=== PATIENT | female | born 1995 | race Caucasian/White ===

== ENCOUNTER 2016-10-11 22:37 | Inpatient (IN) ==
[2016-10-11 23:43] LABS: Bilirubin,Urine Negative (Negative); Blood,Urine Negative (Negative); Clarity,Urine Cloudy (Clear); Color,Urine Yellow (Yellow); Glucose,Urine (UA) Normal (Normal); Ketones,Urine Negative (Negative); Leukocyte Esterase,Urine Negative (Negative); Nitrite,Urine Negative (Negative); Protein,Urine Negative (Neg-Trace); Specific Gravity,Urine 1.026 (1.010-1.025); Urobilinogen,Urine Normal (Normal)
[2016-10-11 23:45] LABS: Bacteria,Urine Few per hpf (None-Few); Hyaline Casts,Urine None Seen per lpf (None-Few); Squamous Epithelial Cell,Urine Many per lpf (None-Few); WBC,Urine 0-3 per hpf (0-3)
[2016-10-11 23:51] LABS: Amphetamine Screen,Urine Negative ng/mL (Cutoff=1000); Barbiturate Screen,Urine Negative ng/mL (Cutoff=200); Benzodiazepines Screen,Urine Negative ng/mL (Cutoff=200); Cannabinoid Screen,Urine Negative ng/mL (Cutoff = 50); Cocaine Screen,Urine Negative ng/mL (Cutoff= 300); Opiate Screen,Urine Negative ng/mL (Cutoff=300); Phencyclidine Screen,Urine Negative ng/mL (Cutoff=25)
[2016-10-12 00:12] LABS: Basophils % 0.1 %; Eosinophils # 0.3 K/mcL (0.0-0.6); Eosinophils % 1.7 %; Hematocrit 38.4 % (35.3-44.9); Hemoglobin 12.8 g/dL (11.5-15.4); Immature Granulocytes % 0.6 % (0-4); Immature Platelets 4.9 % (1.1-6.1); Lymphocytes # 2.9 K/mcL (0.6-4.6); Lymphocytes % 18.6 %; Mean Corpuscular HGB Conc 33.3 g/dL (31.6-35.5); Mean Corpuscular Hemoglobin 29.2 pg (28.0-33.3); Mean Corpuscular Volume 87.7 fL (83.0-100.0); Mean Platelet Volume 10.9 fL (9.4-12.4); Monocytes % 6.4 %; Neutrophils # 11.3 K/mcL (1.6-8.9); Platelet Count 238 K/mcL (140-400); Red Blood Count 4.38 M/mcL (3.82-4.97); Red Cell Distribution Width 12.8 % (11.5-14.5); Segmented Neutrophils % 72.6 %
[2016-10-12 00:25] LABS: Alanine Aminotransferase 7 Units/L (0-55); Albumin 3.5 g/dL (3.5-5.0); Albumin/Globulin Ratio 1.2 (1.1-2.2); Alkaline Phosphatase 81 Units/L (38-126); Aspartate Amino Transferase 14 Units/L (5-34); BUN/Creatinine Ratio 17 (6-26); Bilirubin,Total 0.2 mg/dL (0.2-1.2); Blood Urea Nitrogen 13 mg/dL (7-20); Carbon Dioxide 19 mEq/L (19-29); Chloride 109 mEq/L (98-109); Glucose 165 mg/dL (70-99); Osmolality,Calculated 286 (280-300); Potassium 4.1 mEq/L (3.5-4.5); Sodium 136 mEq/L (136-145); Total Protein 6.5 g/dL (6.0-8.3); eGFR For African Americans > 60 (> 60); eGFR For Non-African Americans > 60 (> 60)
[2016-10-12 00:26] LABS: Acetaminophen < 1.0 mcg/mL (10-30); Ethanol < 10 mg/dL (0-10); Salicylate < 5.0 mg/dL (15-30)
[2016-10-12 00:44] LABS: Thyroid Stimulating Hormone 4.792 mcIU/mL (0.350-4.840)
--- NOTE | 2016-10-12 01:13 | Emergency Department Note ---
Disposition Clinical Impression: Suicide attempt Depression Qualifiers: Depression Type: unspecified Qualified Code(s): F32.9 - Major depressive disorder, single episode, unspecified Disposition: Admitted As Inpatient Condition: Good Time of Disposition: 01:41 Psych HPI - General Chief Complaint: ED Psychiatric Symptoms Stated Complaint: SI Attempt Time Seen by Provider: 10/11/16 22:50 Source: patient, family Limitations: no limitations Nursing Notes Reviewed: Yes Vital Signs Reviewed: Yes - History of Present Illness HPI Narrative: Patient presents emergency room today after ingesting approximately 30 tablets of tizanidine. She did facilitate attempt to kill herself. She says she has been trying to cut herself every week for the last several months to a year. Denies any other ingestion at this time. Family is with her at the bedside. 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 Cardiovascular: Denies: palpitations, dyspnea on exertion Respiratory: Denies: dyspnea, wheezes Gastrointestinal: Denies: nausea, vomiting, diarrhea Genitourinary: Denies: dysuria, frequency Musculoskeletal: Denies: back pain, neck pain Psychiatric: Reports: depression, suicidal thoughts Past Medical History - Past Medical History Attestation: Yes The following information was validated with the patient. 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 - Social History Smoking Status: Current every day smoker Smokeless Tobacco Status: No Alcohol use: Reports: none Drug use: Reports: none Physical Exam - General Limitations: no limitations General appearance: alert - Head Head exam: atraumatic, normocephalic, normal inspection - Neck Neck exam: Present: normal inspection, full ROM, trachea midline - Chest Chest inspection: Present: normal inspection, symmetric chest wall rise - Respiratory Respiratory exam: Present: normal lung sounds bilaterally - Cardiovascular Cardiovascular exam: Present: normal rhythm, bradycardia - Extremities Exam Extremities exam: Present: normal inspection, full ROM - Back Exam Back exam: Present: normal inspection - Neurological Exam Neurological exam: Present: alert, oriented X3, CN II-XII intact, normal gait - Psychiatric Psychiatric exam: Present: depressed - Skin Skin exam: Present: warm, dry, intact, normal color Course Course Narrative: Patient seen and examined the time of arrival. See history of present illness. Patient presents by EMS for evaluation of medication ingestion and suicide attempt. She had taken approximately 29 2 mg tizanidine's. As a muscle relaxer. Reviewed the medication interactions as well as called the Poison Control Center on presentation. Recommendation is symptom control. Ingestion was just about 60 minutes prior to arrival. No recent this point to provide her with oral charcoal. Poison Control Center did not recommend this. Patient will be done on the monitor here. Basic labs will be ordered for medical clearance. We will continue to monitor treatment course and intervene as needed. And workup ordered at this time - Reevaluation(s) Reevaluation #1: EKG is normal. Patient's heart rate has fluctuated from 40-60 but is back now and stable at 60. Her blood pressure is maintained to entire course of care. She is somnolent but wakes up easily and speaks in full sentences. Pleasant control contact us back again and we reviewed the presentation symptoms. The acute onset of this medications within one hour of ingestion and only last about 2-1/2 hours as far as half-life goes. Patient is a partially foreign half -dollar since the ingestion time at this point. She is probably peaked in the as the acuity of her symptoms. Patient will have provided here and then admitted for observation until she is stable enough to be evaluated by her psychiatric team. Otherwise patient man in no acute distress will have emergency room. Admission process to be completed at this time. Time: 01:40 Reevaluation #2: Patient discussed with the hospitals. Blood pressures been stable we are providing her fluids now. In addition pulses to be completed. The patient will be determined once hospitals talked about management. Time: 01:51 Reevaluation #3: Central line placed because a low blood pressure. Norepinephrine drip to be started this time. Admission process to be completed. We do not have ability to keep this patient our facility because of lack of intensive care unit beds. Patient will have to be transferred outside facility for definitive management. Transportation to be completed at this time. Time: 02:51 Additional Reevaluation(s): Plan management came in on by his dose that they do have a bed for this patient now. Patient will be kept at our facility. Admission process to be completed Vital Signs Temperature 98.2 F 10/11/16 22:42 Pulse Rate 61 10/11/16 22:42 Respiratory Rate 20 10/11/16 22:42 Blood Pressure 107/70 10/11/16 22:42 O2 Sat by Pulse Oximetry 99 10/11/16 22:42 Temperature 98.1 F 10/12/16 05:00 Pulse Rate 61 10/12/16 06:00 Respiratory Rate 16 10/12/16 06:00 Blood Pressure 94/48 10/12/16 06:00 O2 Sat by Pulse Oximetry 99 10/12/16 03:47 Oxygen Delivery Oxygen Delivery Room Air Procedures - Central Line Placement Right IJ Central Line Inserted*: Yes Central Line Catheter Replacement*: No Central Line Insertion: emergent Consent Obtained: written consent Procedural Pause: verify patient name and date of , timeout performed per policy, thanh and assess the site, assemble equipment and verify supplies, perform hand hygiene Patient Placed on Monitor/Pulse Ox: Yes During the Procedure: clinician is wearing sterile gloves, cap, mask,& gown during insertion, sterile field and sterile technique are maintained, patient's face is covered with drape or mask and wearing a cap, everyone in room is wearing a mask Central Line Prep: Chlorhexidine scrub Prep the Procedure Site: apply chloraprep to the skin using a back and forth scrubbing motion Local Anesthetic: lidocaine 1% Amount of anesthesia used (mL): 4 Ultrasound Used for Placement: Yes Central Line Lumen Inserted: triple Post Procedure: sutured in place Post Procedure X-Ray: tip of catheter in good position, no pneumothorax seen Patient Tolerated Procedure: well, no complications Complications: none Psych - MDM Narrative Medical decision making narrative: Suicide attempt, drug ingestion - Lab Data Result diagrams: 10/12/16 00:04 10/12/16 00:04 Lab Results 10/11/16 10/11/16 10/11/16 Range/Units 23:35 23:35 23:35 WBC (4.3-11.1) K/mcL RBC (3.82-4.97) M/mcL Hgb (11.5-15.4) g/dL Hct (35.3-44.9) % MCV (83.0-100.0) fL MCH (28.0-33.3) pg MCHC (31.6-35.5) g/dL RDW (11.5-14.5) % Plt Count (140-400) K/mcL MPV (9.4-12.4) fL Immature Gran % (0-4) % Seg Neutrophils % % Lymphocytes % % Monocytes % % Eosinophils % % Basophils % % Neutrophils # (1.6-8.9) K/mcL Lymphocytes # (0.6-4.6) K/mcL Monocytes # (0.0-1.3) K/mcL Eosinophils # (0.0-0.6) K/mcL Basophils # (0.0-0.2) K/mcL Immature Plt Fraction (1.1-6.1) % Sodium (136-145) mEq/L Potassium (3.5-4.5) mEq/L Chloride (98-109) mEq/L Carbon Dioxide (19-29) mEq/L BUN (7-20) mg/dL Creatinine (0.57-1.11) mg/dL Est GFR ( Amer) (> 60) Est GFR (Non-Af Amer) (> 60) BUN/Creatinine Ratio (6-26) Glucose (70-99) mg/dL Calculated Osmolality (280-300) Calcium (8.6-10.8) mg/dL Total Bilirubin (0.2-1.2) mg/dL AST (5-34) Units/L ALT (0-55) Units/L Alkaline Phosphatase (38-126) Units/L Serum Total Protein (6.0-8.3) g/dL Albumin (3.5-5.0) g/dL Globulin (2.4-3.5) g/dL Albumin/Globulin Ratio (1.1-2.2) TSH (0.350-4.840) mcIU/mL Urine Color Yellow (Yellow) Urine Clarity Cloudy A (Clear) Urine pH 7.0 (5.0-8.0) pH Units Ur Specific [place] 1.026 H (1.010-1.025) Urine Protein Negative (Neg-Trace) mg/dL Urine Glucose (UA) Normal (Normal) mg/dL Urine Ketones Negative (Negative) mg/dL Urine Blood Negative (Negative) Urine Nitrite Negative (Negative) Urine Bilirubin Negative (Negative) Urine Urobilinogen Normal (Normal) mg/dL Ur Leukocyte Esterase Negative (Negative) Urine Microscopic RBC 3-5 H (0-3) per hpf Urine Microscopic WBC 0-3 (0-3) per hpf Ur Squamous Epith Cells Many H (None-Few) per lpf Urine Bacteria Few (None-Few) per hpf Hyaline Casts None Seen (None-Few) per lpf Ur Culture Indicated? NO (NO) Urine Test Negative (Negative) Salicylates (15-30) mg/dL Urine Opiates Screen Negative (Wtxnka=791) ng/mL Acetaminophen (10-30) mcg/mL Ur Barbiturates Screen Negative (Foexab=985) ng/mL Ur Phencyclidine Scrn Negative (Cutoff=25) ng/mL Ur Amphetamines Screen Negative (Ovlwhg=3928) ng/mL U Benzodiazepines Scrn Negative (Mqukmt=942) ng/mL Urine Cocaine Screen Negative (Cutoff= 300) ng/mL U Marijuana (THC) Screen Negative (Cutoff = 50) ng/mL Ethyl Alcohol (0-10) mg/dL 10/12/16 10/12/16 Range/Units 00:04 00:04 WBC 15.6 H (4.3-11.1) K/mcL RBC 4.38 (3.82-4.97) M/mcL Hgb 12.8 (11.5-15.4) g/dL Hct 38.4 (35.3-44.9) % MCV 87.7 (83.0-100.0) fL MCH 29.2 (28.0-33.3) pg MCHC 33.3 (31.6-35.5) g/dL RDW 12.8 (11.5-14.5) % Plt Count 238 (140-400) K/mcL MPV 10.9 (9.4-12.4) fL Immature Gran % 0.6 (0-4) % Seg Neutrophils % 72.6 % Lymphocytes % 18.6 % Monocytes % 6.4 % Eosinophils % 1.7 % Basophils % 0.1 % Neutrophils # 11.3 H (1.6-8.9) K/mcL Lymphocytes # 2.9 (0.6-4.6) K/mcL Monocytes # 1.0 (0.0-1.3) K/mcL Eosinophils # 0.3 (0.0-0.6) K/mcL Basophils # 0.0 (0.0-0.2) K/mcL Immature Plt Fraction 4.9 (1.1-6.1) % Sodium 136 (136-145) mEq/L Potassium 4.1 (3.5-4.5) mEq/L Chloride 109 (98-109) mEq/L Carbon Dioxide 19 (19-29) mEq/L BUN 13 (7-20) mg/dL Creatinine 0.77 (0.57-1.11) mg/dL Est GFR ( Amer) > 60 (> 60) Est GFR (Non-Af Amer) > 60 (> 60) BUN/Creatinine Ratio 17 (6-26) Glucose 165 H (70-99) mg/dL Calculated Osmolality 286 (280-300) Calcium 9.0 (8.6-10.8) mg/dL Total Bilirubin 0.2 (0.2-1.2) mg/dL AST 14 (5-34) Units/L ALT 7 (0-55) Units/L Alkaline Phosphatase 81 (38-126) Units/L Serum Total Protein 6.5 (6.0-8.3) g/dL Albumin 3.5 (3.5-5.0) g/dL Globulin 3.0 (2.4-3.5) g/dL Albumin/Globulin Ratio 1.2 (1.1-2.2) TSH 4.792 (0.350-4.840) mcIU/mL Urine Color (Yellow) Urine Clarity (Clear) Urine pH (5.0-8.0) pH Units Ur Specific [place] (1.010-1.025) Urine Protein (Neg-Trace) mg/dL Urine Glucose (UA) (Normal) mg/dL Urine Ketones (Negative) mg/dL Urine Blood (Negative) Urine Nitrite (Negative) Urine Bilirubin (Negative) Urine Urobilinogen (Normal) mg/dL Ur Leukocyte Esterase (Negative) Urine Microscopic RBC (0-3) per hpf Urine Microscopic WBC (0-3) per hpf Ur Squamous Epith Cells (None-Few) per lpf Urine Bacteria (None-Few) per hpf Hyaline Casts (None-Few) per lpf Ur Culture Indicated? (NO) Urine Test (Negative) Salicylates < 5.0 L (15-30) mg/dL Urine Opiates Screen (Lzzqbw=608) ng/mL Acetaminophen < 1.0 L (10-30) mcg/mL Ur Barbiturates Screen (Aeodlw=076) ng/mL Ur Phencyclidine Scrn (Cutoff=25) ng/mL Ur Amphetamines Screen (Cwofxy=6461) ng/mL U Benzodiazepines Scrn (Oooqqi=865) ng/mL Urine Cocaine Screen (Cutoff= 300) ng/mL U Marijuana (THC) Screen (Cutoff = 50) ng/mL Ethyl Alcohol < 10 (0-10) mg/dL Psychiatric Medical Clearance - Medical Clearance Checklist Does the patient have a NEW psychiatric condition?: No Any abnormalities indicating possible medical illness?: No Any history of medical issues?: No Medical History: No Social History Section defined Any abnormal vital signs prior to transfer?: Yes Current Vitals: Last Vital Signs Temp 98.1 F 10/12/16 05:00 Pulse 61 10/12/16 06:00 Resp 16 10/12/16 06:00 BP 94/48 10/12/16 06:00 Pulse Ox 99 10/12/16 03:47 Is the patient intoxicated or cognitively impaired?: Yes Psychiatric Lab Panel: Drug Levels and Toxicity 10/11/16 10/12/16 23:35 00:04 Urine Opiates Screen Negative Acetaminophen < 1.0 L Ur Barbiturates Screen Negative Ur Phencyclidine Scrn Negative Ur Amphetamines Screen Negative U Benzodiazepines Scrn Negative Urine Cocaine Screen Negative U Marijuana (THC) Screen Negative Ethyl Alcohol < 10 Any abnormalities on the physical exam?: No Any abnormal labs?: No Abnormal Labs: Abnormal lab results WBC 15.6 K/mcL (4.3-11.1) H 10/12/16 00:04 Neutrophils # 11.3 K/mcL (1.6-8.9) H 10/12/16 00:04 Glucose 165 mg/dL (70-99) H 10/12/16 00:04 POC Glucose 102 (58-89) H 10/12/16 05:09 Urine Clarity Cloudy (Clear) A 10/11/16 23:35 Ur Specific [place] 1.026 (1.010-1.025) H 10/11/16 23:35 Urine Microscopic RBC 3-5 per hpf (0-3) H 10/11/16 23:35 Ur Squamous Epith Cells Many per lpf (None-Few) H 10/11/16 23:35 Salicylates < 5.0 mg/dL (15-30) L 10/12/16 00:04 Acetaminophen < 1.0 mcg/mL (10-30) L 10/12/16 00:04 Does the patient require durable medical equiptment?: No Is the patient ambulatory?: Yes Is the patient a fall risk?: Yes Has the patient been medically cleared?: No Any acute medical condition require Tx prior to transfer?: No Attestation Statement - Attestation Attestation: For this encounter, I have reviewed the resident, DOG HANDLER OR TRAINER, or PA documentation, treatment plan, and medical decision making; and I have had face to face time with this patient. 21-year-old female presents after suicidal attempts. Patient states that she was in argument with her grandmother, took 2 initial tizanidine to help her get to sleep and then felt depressed and wanted to end her life so she took an extra 27 pills of 2 mg tizanidine. Patient shows contacted by the resident who recommended continued observation for possible bradycardia and hypotension. After about 2 hours of observation the patient started to become fatigued, her heart rate dropped to 45 and her BP dropped below 90 systolic. Patient was given a liter of IV fluids which mildly improved her symptoms. Ultimately she needed a central line placed in the right IJ to be able to give Levophed. This was done after obtaining written consent after discussion of risks and benefits with the patient and was done and a sterile fashion. Patient comfortable with the plan to be admitted to the hospital for further evaluation. Patient admitted to the ICU.
[2016-10-12] MEDS ORDERED: 0.9 % Sodium Chloride 1,000 ML ONE (01:22)
[2016-10-12] MEDS ORDERED: Norepinephrine 4 MG in D5% in Water 250 ML IVC SCH ×2 (02:30→03:00)
[2016-10-12] MEDS ORDERED: Naloxone 0.4 MG/ML INJ IVP PRN (03:46)
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
[2016-10-12] MEDS ORDERED: 0.9 % Sodium Chloride 1,000 ML IVC SCH (04:00)
[2016-10-12] MEDS: 0.9 % Sodium Chloride 1,000 ML IVC SCH ×2 (04:11→13:13)
--- NOTE | 2016-10-12 16:50 | Internal Med Progress Note ---
Date of Encounter: 10/12/16 Time of Encounter: 09:00 - Assessment and plan (1) Intentional overdose of drug in tablet form Current Visit: Yes Status: Acute Assessment and plan: Right now vital signs stable, EKG reviewed, unremarkable. Lab shows normal kidney and liver function. Poison control hotline contacted by ER doctor, recommend supportive treatment. We will continue closely monitoring. (2) Leucocytosis Current Visit: Yes Status: Acute Assessment and plan: Probably reactive, will repeat cbc in AM Qualifiers: Leukocytosis type: unspecified Qualified Code(s): D72.829 - Elevated white blood cell count, unspecified (3) Suicide attempt Current Visit: Yes Status: Acute Assessment and plan: Psychiatry consult. Will continue treat patient in psych unit after medical clearance (4) Seizure disorder Current Visit: Yes Status: Chronic Assessment and plan: Pt is not on any seizure medication at home. Close monitoring, seizure precautions. (5) DVT prophylaxis Current Visit: Yes Status: Acute Assessment and plan: EPCD. - Time Spent With Patient 25 - 35 minutes - Subjective Interval history: Patient is a 21-year-old female admitted for medication overdose and suicidal attempt. She ingested 29 tablets of tizanidine 2 mg. Her past medical history is significant for depression, PTSD, seizures. Patient was seen and examined. She is awake, alert, oriented 3. She looks calm down, non combating. Vital signs stable. She was placed on pressor last night but was discontinued this morning. She denies dizziness or lightheaded, no nausea or vomiting. We will continue cardiac monitoring and supportive treatment. Psychiatry consult saw patient, plan to continue closely monitoring medical unit for over 24 hours and transferred to psych unit. - Constitutional Vitals: Temp Pulse Resp BP Pulse Ox 97.8 F 71 18 116/64 100 10/12/16 11:00 10/12/16 15:00 10/12/16 15:00 10/12/16 15:00 10/12/16 15:33 General appearance: Present: A&O X 3, answers questions appropriately - Head Head exam: Present: atraumatic, normocephalic - Eye Eye exam: Present: PERRL, conjuntiva pink, sclera anicteric Pupils: Present: PERRL - Neck Neck exam general surgery: Present: supple, trachea midline. Absent: lymphadenopathy - Respiratory Respiratory exam: Present: CTAB. Absent: accessory muscle use, rales, rhonchi, wheezes - Cardiovascular Cardiovascular exam: Present: RRR, +S1, +S2. Absent: diastolic murmur, gallop, rubs, systolic murmur - GI/Abdominal GI/Abdominal exam: Present: normal bowel sounds, soft, no peritoneal signs. Absent: distended, tenderness - Extremities Exam Extremities exam: Present: warm, radial pulses palpable and symetrical. Absent : calf tenderness, cyanotic, pedal edema - Neurological Exam Neurological exam: Present: CN II-XII intact, oriented X3, no focal deficits. Absent: pronater drift, facial droop, speech deficit - Skin Skin exam: Present: dry, intact Internal Medicine: Result - Labs CBC & Chem 7: 10/12/16 00:04 10/12/16 00:04 Consult Discharge Plan - Plan Referrals: NO,PCP [Primary Care Provider] -
--- NOTE | 2016-10-12 19:45 | Electrocardiograph Report ---
[place] [address] Test Date: 2016-10-11 Pat Name: Crystal Mas Department: 104 Room: 3A31 Gender: F Offbearer: : 1995 Requested By: Esteban Nicole Order Number: [id number] Reading MD: Nii Cook DO Measurements Intervals [place] Rate: 53 P: 40 MI: 143 QRS: 64 QRSD: 81 T: 20 QT: 394 QTc: 377 Interpretive Statements SINUS BRADYCARDIA WITH SINUS ARRHYTHMIA Electronically Signed On 10-12-2016 19:43:24 EST by Nii Cook DO
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
[2016-10-13 06:08] LABS: Basophils % 0.2 %; Eosinophils # 0.2 K/mcL (0.0-0.6); Eosinophils % 2.5 %; Hematocrit 40.5 % (35.3-44.9); Hemoglobin 13.5 g/dL (11.5-15.4); Immature Granulocytes % 0.7 % (0-4); Lymphocytes # 3.2 K/mcL (0.6-4.6); Lymphocytes % 33.1 %; Mean Corpuscular HGB Conc 33.3 g/dL (31.6-35.5); Mean Corpuscular Hemoglobin 29.2 pg (28.0-33.3); Mean Corpuscular Volume 87.5 fL (83.0-100.0); Mean Platelet Volume 10.9 fL (9.4-12.4); Monocytes # 0.8 K/mcL (0.0-1.3); Neutrophils # 5.3 K/mcL (1.6-8.9); Platelet Count 230 K/mcL (140-400); Red Blood Count 4.63 M/mcL (3.82-4.97); Red Cell Distribution Width 13.1 % (11.5-14.5); Segmented Neutrophils % 55.5 %
[2016-10-13 06:33] LABS: Alanine Aminotransferase 9 Units/L (0-55); Albumin 3.9 g/dL (3.5-5.0); Albumin/Globulin Ratio 1.3 (1.1-2.2); Alkaline Phosphatase 67 Units/L (38-126); Aspartate Amino Transferase 15 Units/L (5-34); BUN/Creatinine Ratio 11 (6-26); Bilirubin,Total 0.6 mg/dL (0.2-1.2); Blood Urea Nitrogen 8 mg/dL (7-20); Carbon Dioxide 23 mEq/L (19-29); Chloride 108 mEq/L (98-109); Globulin 2.9 g/dL (2.4-3.5); Glucose 84 mg/dL (70-99); Osmolality,Calculated 282 (280-300); Potassium 3.6 mEq/L (3.5-4.5); Sodium 137 mEq/L (136-145); Total Protein 6.8 g/dL (6.0-8.3); eGFR For African Americans > 60 (> 60); eGFR For Non-African Americans > 60 (> 60)
[2016-10-13 11:35] VITALS: BP 124/63
--- NOTE | 2016-10-13 12:15 | Discharge Summary ---
Date of Encounter: 10/13/16 Time of Encounter: 10:20 - Discharge Diagnosis (1) Hypotension Priority: Primary Status: Resolved Qualifiers: Hypotension type: hypotension due to drug Qualified Code(s): I95.2 - Hypotension due to drugs (2) Intentional overdose of drug in tablet form Priority: Primary Status: Acute (3) Depression Priority: Primary Status: Chronic Qualifiers: Depression Type: unspecified Qualified Code(s): F32.9 - Major depressive disorder, single episode, unspecified (4) Migraine Priority: Secondary Status: Chronic Qualifiers: Migraine type: unspecified Status migrainosus presence: without status migrainosus Intractability: not intractable Qualified Code(s): G43.909 - Migraine, unspecified, not intractable, without status migrainosus (5) Leucocytosis Priority: Primary Status: Resolved Qualifiers: Leukocytosis type: unspecified Qualified Code(s): D72.829 - Elevated white blood cell count, unspecified (6) PTSD (post-traumatic stress disorder) Priority: Secondary Status: Chronic (7) Suicide attempt Priority: Primary Status: Acute - Discharge Medications Home Medications: Duloxetine [Cymbalta] 30 mg PO DAILY 10/12/16 [History] Naproxen [Naprosyn] 500 mg PO DAILY PRN 10/12/16 [History] Tizanidine HCl [Zanaflex] 2 mg PO HS 10/12/16 [History] Allergies/Adverse Reactions: Allergies Devon And Derivatives Allergy (Verified 10/13/16 07:12) See Comments Tomato Allergy (Verified 10/13/16 07:12) See Comments Procedures/tests Complete & Pending: Procedures Performed prior 72 hours Category Date Time Status EKG [ECG 12 lead ECG] [ECG] Timed Y 10/13/16 08:00 Completed Date of admission: 10/12/16 03:15 Primary care physician: PCP NO Consults: 10/12/16 03:49 Consult to Psychiatry [CONS] Routine Consulting Provider: Psychiatry Mouna Reason for Consult: Intentional overdose of medications; suicidal Call Completed: No Discharging clinician: Kenyatta Spears Anticipated date of discharge: 10/13/16 - Patient Status Disposition: Home, Self-Care Condition: Good Functional capacity at discharge: independent ambulation Overall status at discharge: patient is back to baseline - Discharge Instructions Additional Instructions: transfer [facility] psychiatry once medically stable - Diet and Activity Activity: resume usual activities as tolerated Diet: advance to your usual diet Hospital course: Ms. Mas is a 21 year old female with history of depression, PTSD and suicidal attempts in the past, was admitted with intentional drug overdose with suicidal ideation. Patient was noted to have ingested multiple patients of Tizanidine and was noted to have hypotension and shock. She was started on aggressive IV hydration and she also required vasopressors briefly. Poison control was contacted and recommended supportive care. Psychiatry was consulted and recommended transfer to inpatient psychiatry unit when medically stable. Patient is noted to be alert and oriented and in better spirits this morning. Her blood pressure improved. Basic labs showed no acute abnormality. She is medically stable for transfer to inpatient psychiatric at this time. She has been monitored on one-to-one sitter during her hospitalization, for patient safety. - Time Spent with Patient Total time spent providing and/or coordinating discharge services: Greater than 30 minutes (40 min) - Constitutional Vitals: Temp Pulse Resp BP Pulse Ox 98.8 F 70 16 124/63 99 10/13/16 11:34 10/13/16 11:34 10/13/16 11:34 10/13/16 11:34 10/13/16 11:34 General appearance: Present: A&O X 3, answers questions appropriately - Respiratory Respiratory exam: Present: CTAB. Absent: accessory muscle use, rales, rhonchi, wheezes - Cardiovascular Cardiovascular exam: Present: RRR, +S1, +S2. Absent: diastolic murmur, gallop, rubs, systolic murmur - Psychiatric Psychiatric exam: Present: normal mood (cheerful)
--- NOTE | 2016-10-13 18:32 | Electrocardiograph Report ---
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
--- NOTE | 2016-10-13 18:35 | Electrocardiograph Report ---
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
== END 2016-10-13 13:40 | disposition home or self-care (01) | DRG 918 ==
LOC: EMEROO 22:37 → SUATTDRO 10-12 03:15 → ICNU 10-12 03:15 → 3ANU 10-12 15:24
PROVIDERS: ADMIT Internal Medicine; ATTEND Internal Medicine

== ENCOUNTER 2016-10-13 13:41 | Inpatient (IN) ==
[2016-10-13] MEDS ORDERED: hydrOXYzine pamoate 25 MG CAPSULE PO PRN (16:51)
[2016-10-13] MEDS ORDERED: *HR* LORazepam 2 MG/ML VIAL IM PRN ×2 (16:51→17:01)
[2016-10-13] MEDS ORDERED: Mag Hydrox/Al Hydrox/Simeth 30 ML UDC PO PRN (16:51)
[2016-10-13] MEDS ORDERED: Haloperidol Lactate 5 MG/ML VIAL IM PRN (16:51)
[2016-10-13] MEDS ORDERED: MOM Conc 10 ML UD.LIQ PO PRN (16:51)
[2016-10-13] MEDS ORDERED: traZODone 50 MG TABLET PO PRN (16:51)
[2016-10-13] MEDS ORDERED: *HR* LORazepam 1 MG TABLET PO PRN ×2 (16:51→17:01)
[2016-10-13] MEDS ORDERED: Ibuprofen 400 MG TABLET PO PRN (16:51)
[2016-10-13] MEDS ORDERED: Acetaminophen 325 MG TABLET PO PRN (17:09)
[2016-10-13] MEDS ORDERED: Acetaminophen 325 MG TABLET PO SCH (20:00)
[2016-10-14] MEDS: Vitamin B Complex/Vit C/Vit E 1 EACH TABLET PO SCH (08:48)
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
[2016-10-14] MEDS: FLUoxetine HCl 10 MG CAPSULE PO SCH (10:59)
[2016-10-15] MEDS: FLUoxetine HCl 10 MG CAPSULE PO SCH (08:49)
[2016-10-15] MEDS: Vitamin B Complex/Vit C/Vit E 1 EACH TABLET PO SCH (08:49)
--- NOTE | 2016-10-15 11:01 | Psychiatry Progress Note ---
Date of Encounter: 10/15/16 Time of Encounter: 10:56 Subjective Interval history: Patient seen and evaluated this morning. Case discussed with treatment team. On evaluation patient reports that she is doing "better" she reports that she has had no issues with new medication initiation of Prozac. Patient reports that she feels like her anxiety and depression is getting better since admission. Patient reports that she has been going to groups and interacting in group activities. Sleep and appetite has been fair patient denied SI or HI. Patient reports that she has had time to think about the events leading up to her admission. Reports understanding that her medications will now be dispensed to her by her boyfriend. burlap worker has contacted boyfriend reports that he is willing to dispense medication so patient is able to keep herself safe. Patient reports that she has been able to participate in groups and learn coping skills while she has been here. Patient is very eager to follow-up with her outpatient counselor on discharge and reports she will be making an appointment with her prior to discharge. Patient denied SI or HI at the time of evaluation. Patient reported no safety concerns. Objective: Exam Patient orientation: Yes Person, Yes Time, Yes Place, Yes Circumstance Level of alertness: Alert Patient appearance: Appropriate Behavior: calm, cooperative Psychomotor activity: Normal Eye contact: Maintains Eye Contact Mood description: Euthymic/stable Affect description: congruent with mood Speech pattern: Normal rate, Normal rhythm, Normal tone Speech volume: Normal Thought process: Intact Thought content: Yes Intact, No Suicidal ideation, No Homicidal ideation Perceptual disturbances: No Reacting to internal stimuli, No Auditory hallucinations, No Visual hallucinations Judgment: Fair Insight: Partial Results - Vital Signs Vital Signs: Temp Pulse Resp BP 97.9 F 73 16 107/68 10/15/16 09:00 10/15/16 09:00 10/15/16 09:00 10/15/16 09:00 Assessment and Plan (1) Major depressive disorder Current visit: Yes Status: Acute Additional Plan: 10/15: increase prozac 20 mg qday for anxiety and depression 10/14: start prozac 10 mg for anxiety and deprsesion Risks, benefits, side effects, alternatives discussed w/pt: Yes Patient agreeable to treatment: Yes Qualifiers: Major depression recurrence: recurrent Active/Remission status: currently active Major depression episode severity: moderate Qualified Code(s): F33.1 - Major depressive disorder, recurrent, moderate (2) Generalized anxiety disorder Current visit: Yes Status: Acute Risks, benefits, side effects, alternatives discussed w/pt: Yes Patient agreeable to treatment: Yes (3) PTSD (post-traumatic stress disorder) Current visit: No Status: Chronic Risks, benefits, side effects, alternatives discussed w/pt: Yes Patient agreeable to treatment: Yes Consult Discharge Plan - Plan Referrals: Nikki Busby [Outside] - 10/22/16 3:00 pm (The above appointment is with Leyla Francisco. You will also resume women's group with Geovanna on Mondays and Fridays from 1:00pm - 3:00pm.) Leland Flores MD [Non-Partnered Physician] - 10/21/16 3:00 pm (The above appointment is with Dr. Flores.)
[2016-10-16] MEDS: Vitamin B Complex/Vit C/Vit E 1 EACH TABLET PO SCH (08:13)
[2016-10-16 08:41] VITALS: BP 121/82
[2016-10-16] MEDS ORDERED: FLUoxetine 20 MG CAPSULE PO SCH (09:00)
[2016-10-16] MEDS ORDERED: FLUoxetine HCl Oral Soln 20 MG/5 ML UDC PO SCH (09:00)
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
== END 2016-10-16 10:45 | disposition home or self-care (01) | DRG 918 ==
LOC: 1ANU 13:41
PROVIDERS: ADMIT Psychiatry & Neurology Psychiatry; ATTEND Psychiatry & Neurology Psychiatry